=== PATIENT | female | born 1990 ===

== ENCOUNTER 2017-01-23 23:02 | Emergency (ER) | payer OTHER ==
[2017-01-23 23:09] VITALS: BP 127/74; PULSE 83; RESP 16; TEMP 98; O2SAT 100
--- NOTE | 2017-01-23 23:45 | ED PDOC ---
HPI: General Adult Time Seen by Provider: 01/23/17 23:17 Chief Complaint (Nursing): Abdominal Pain Chief Complaint (Provider): Vaginal Discharge History Per: Patient History/Exam Limitations: no limitations Current Symptoms Are (Timing): Still Present Additional Complaint(s): Elisabet Parsons, a 26 year old female, who is currently 6 weeks presents to the ED with vaginal discharge and a yeast infection. The patient states that she he had a yeast infection 2 weeks ago and took monistat but did not complete the full course because she was feeling better. She reports that the discharge has come back today associated with some vaginal irritation. Denies pain and abdominal pain. Past Medical History Reviewed: Historical Data, Nursing Documentation, Vital Signs Vital Signs: Last Vital Signs Temp 98.0 F 01/23/17 23:05 Pulse 83 01/23/17 23:05 Resp 16 01/23/17 23:05 BP 127/74 01/23/17 23:05 Pulse Ox 100 01/23/17 23:52 - Medical History PMH: No Chronic Diseases - Surgical History Surgical History: - Family History Family History: States: Unknown Family Hx - Home Medications Home Medications: Ambulatory Orders Medication Instructions Recorded Naproxen 500 mg PO BID PRN #20 tab 05/10/15 Clotrimazole 1% Vaginal [Lotrimin 45 applic VG HS 7 Days 01/23/17 1% Vaginal] Nitrofurantoin Macrocrystals 100 mg PO BID 5 Days 01/24/17 [Macrobid] - Allergies Allergies/Adverse Reactions: Allergies Allergy/AdvReac Type Severity Reaction Status Date / Time No Known Allergies Allergy Verified 01/15/16 20:08 Review of Systems ROS Statement: Except As Marked, All Systems Reviewed And Found Negative Gastrointestinal: Negative for: Abdominal Pain Genitourinary Female: Positive for: Vaginal Discharge (Vaginal discharge and vaginal irritation) Physical Exam - Reviewed Nursing Documentation Reviewed: Yes Vital Signs Reviewed: Yes - Physical Exam Appears: Positive for: Non-toxic, No Acute Distress Head Exam: Positive for: ATRAUMATIC, NORMAL INSPECTION, NORMOCEPHALIC Skin: Positive for: Normal Color, Warm, Dry Eye Exam: Positive for: Normal appearance, EOMI, PERRL ENT: Positive for: Normal ENT Inspection Neck: Positive for: Normal, Painless ROM, Supple Cardiovascular/Chest: Positive for: Regular Rate, Rhythm, Chest Non Tender. Negative for: Tachycardia Respiratory: Positive for: Normal Breath Sounds. Negative for: Wheezing, Respiratory Distress Gastrointestinal/Abdominal: Positive for: Normal Exam. 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 Negative for: Tender Adnexa Back: Positive for: Normal Inspection Extremity: Positive for: Normal ROM, Tenderness. Negative for: Pedal Edema, Deformity, Swelling Neurologic/Psych: Positive for: Alert, Oriented, Gait - ECG O2 Sat by Pulse Oximetry: 100 (RA) Pulse Ox Interpretation: Normal Medical Decision Making Medical Decision Makin Initial Impression: 26 year old female presenting vulvovaginal candidiasis Initial Plan: * Upreg * Udip * Chlamydia/GC RNA * TMA * Reevaluation 1139 Patient is medically stable and will be discharged home. Pt. has UTI, counseled on completing full course of both ABx and clotrimazole. Return precautions given. Scribe Attestation Documented by Amairani Sifuentes acting as a scribe for Hussein Yates MD. Provider Attestation All medical record entries made by the Scribe were at my direction and personally dictated by me. I have reviewed the chart and agree that the record accurately reflects my personal performance of the history, physical exam, medical decision making, and the department course for this patient. I have also personally directed, reviewed, and agree with the discharge instructions and disposition. Disposition - Clinical Impression Clinical Impression: Vulvovaginitis, UTI (urinary tract infection) - Patient ED Disposition Is Patient to be Admitted: No - Disposition Referrals: Deanna Fisher MD [Primary Care Provider] - Disposition: Routine/Home Disposition Time: 23:30 Condition: STABLE Prescriptions: Clotrimazole 1% Vaginal [Lotrimin 1% Vaginal] 45 applic VG HS 7 Days Nitrofurantoin Macrocrystals [Macrobid] 100 mg PO BID 5 Days Instructions: Vulvovaginal Candidiasis (ED), Urinary Tract Infection in (ED)
[2017-01-24 00:36] LABS: SQUAMOUS EPITHIAL 3 /hpf (0-5); URINE BACTERIA RARE (<OCC); URINE BILIRUBIN NEGATIVE (NEGATIVE); URINE BLOOD NEGATIVE (NEGATIVE); URINE CLARITY CLOUDY (Clear); URINE COLOR YELLOW (YELLOW); URINE GLUCOSE (UA) NEG (Normal); URINE LEUKOCYTE ESTERASE LARGE Leu/uL (Negative); URINE NITRATE NEGATIVE (NEGATIVE); URINE PROTEIN 30 mg/dL (NEGATIVE); URINE UROBILINOGEN 0.2-1.0 mg/dL (0.2-1.0)
== END 2017-01-24 00:52 | disposition home or self-care (01) ==
LOC: H.ER 23:02
DX: B37.3 Candidiasis of vulva and vagina (principal); N39.0 Urinary tract infection, site not specified; N76.0 Acute vaginitis